=== PATIENT | male | born 1975 | race Caucasian/White ===

== ENCOUNTER 2019-11-29 16:20 | Emergency (ER) | payer MEDICAID ==
[~2019-11-29] VITALS: Ht 175.3 cm; Wt 104.0 kg
[2019-11-29 16:33] VITALS: BP 133/94
[2019-11-29] MEDS ORDERED: triamcinolone acetonide 40mg/ml inj IM ONE (18:40)
[2019-11-29] MEDS ORDERED: diphenhydrAMINE 25mg capsule PO ONE (18:40)
[2019-11-29] MEDS ORDERED: TRIA15CR62 TP (18:48)
[2019-11-29] MEDS ORDERED: PRED20TA PO (18:48)
[2019-11-29] MEDS ORDERED: DIPH25CA83 PO (18:48)
== END 2019-11-29 19:02 | disposition home or self-care (01) ==
LOC: ER 16:21
DX: L25.9 Unspecified contact dermatitis, unspecified cause (principal); L98.8 Other specified disorders of the skin and subcutaneous tissue; Z79.899 Other long term (current) drug therapy
CPT/HCPCS: 96372; 99283; J3301; Q0163

== ENCOUNTER 2024-02-11 09:29 | Emergency (ER) | payer MEDICAID ==
[~2024-02-11] VITALS: Ht 175.3 cm; Wt 102.8 kg
[~2024-02-11 09:29] MED LIST: DIPH25CA83 PO
[2024-02-11 09:30] VITALS: BP 142/80; PULSE 108; TEMP 98.6; O2SAT 100
[2024-02-11 09:42] VITALS: RESP 16
[2024-02-11] MEDS ORDERED: OLOP2.5D12 OP (09:53)
[2024-02-11] MEDS ORDERED: ERYT1OIN6 EACHEYE (09:53)
[2024-02-11] MEDS ORDERED: PRED10TA23 PO (09:53)
== END 2024-02-11 10:13 | disposition home or self-care (01) ==
LOC: ER 09:30
DX: H10.9 Unspecified conjunctivitis (principal); Z79.899 Other long term (current) drug therapy
CPT/HCPCS: 99283

== ENCOUNTER 2024-12-15 18:37 | Emergency (ER) | payer MEDICAID ==
[~2024-12-15] VITALS: Ht 175.3 cm; Wt 120.5 kg
[~2024-12-15 18:37] MED LIST changes: +OLOP2.5D12 OP
[2024-12-15 18:47] VITALS: TEMP 98.5
[2024-12-15] MEDS: metoclopramide 5 mg/ml inj IV ONE (20:37)
[2024-12-15] MEDS: ketorolac trometh 15mg/ml vial 15 MG/ML ML IV ONE (20:41)
[2024-12-15] MEDS: dexamethasone sod phosphate 10mg/ml inj IV STA (20:44)
[2024-12-15] MEDS: diphenhydrAMINE 50 mg/ml inj IV ONE (20:50)
[2024-12-15 21:13] VITALS: BP 105/69; PULSE 81; RESP 14; O2SAT 99
[2024-12-15] MEDS ORDERED: TAM75C PO (22:09)
[2024-12-15] MEDS: oseltamivir phos 75mg capsule PO ONE (22:52)
== END 2024-12-15 23:00 | disposition home or self-care (01) ==
LOC: ER 18:37
DX: J10.1 Influenza due to other identified influenza virus with other respiratory manifestations (principal); Z79.899 Other long term (current) drug therapy; Z20.822 Contact with and (suspected) exposure to COVID-19
CPT/HCPCS: 36415; 87502; 87503; 87811; 96374; 96375; 99284; J1100; J1200; J1885; J2765; J7030